=== PATIENT | male | born 1980 | race Caucasian/White ===

== ENCOUNTER 2022-04-07 13:08 | Emergency (ER) | payer OTHER, SELFPAY ==
[2022-04-07 13:09] VITALS: BP 118/71; PULSE 73; RESP 18; O2SAT 95; BMI 24.0
[2022-04-07 13:13] VITALS: BP 116/66
--- NOTE | 2022-04-07 13:20 | ECG_ITS ---
[facility] Test Date: 2022-04-07 Pat Name: Leonardo Martinez Department: Room: Gender: Male Electronics Inspector: : 1980 Requested By: Emil Hernandez Order Number: [id number] Gao MD: Satya You M.D. Measurements Intervals [place] Rate: 58 P: 30 CA: 185 QRS: -1 QRSD: 106 T: 69 QT: 371 QTc: 367 Interpretive Statements SINUS BRADYCARDIA POSSIBLE ANTERIOR MYOCARDIAL INFARCTION , OF INDETERMINATE AGE [30 ms Q WAVE IN V3/V4, OR R < 0.2 mV IN V4] No previous ECG available for comparison Electronically Signed On 04-08-2022 8:52:17 CDT by Satya You M.D. [email or web address]
--- NOTE | 2022-04-07 13:26 | XR_ITS ---
WS: [id number] Exam: XR chest 1V portable [id number] Date/Time of Exam: 04/07/2022 1:29 PM Reason For Exam: chest pain Findings: The lungs are clear and fully expanded. Costophrenic angles are sharp. No infiltrates. Bronchovascula r relief appears normal. Cardiac silhouette is unremarkable. Bony elements are intact. XR/XR chest 1V portable [id number] IMPRESSION: Unremarkable chest radiograph.
--- NOTE | 2022-04-07 13:34 | W.ED.GENADLT ---
HPI - General Adult General: Chief complaint: Chest Pain Stated complaint: Chest Pain Time Seen by Provider: 04/07/22 13:10 History of Present Illness: Patient is a 41-year-old male with family history of cardiac diseases presenting to the emergency room for evaluation of chest pain since yesterday afternoon. Patient first noticed chest pain yesterday at 10 AM. Since then, patient has been having intermittent pressure-like chest pain lasting throughout the day. Patient said the pain is not worse with exertion it is minimally pleuritic. Patient denies pain rating with radiation to the back or arm. Patient denies any nausea/vomiting, diaphoresis, cough, runny nose, sore throat, abdominal complaints, diarrhea, melena/hematochezia. Denies any recent surgery or immobilization. Patient denies any leg swellings or prior history of VTE. Patient has multiple first-degree family members with heart problems including brother with a stent in in his 40s. Onset: 10am yesterday Duration:ongoing Location:home Severity:moderate Associated symptoms: Reports chest pain; Deny dyspnea, nausea, rash, palpitations or vomiting Review of Systems Const: Denies: fever(s) or chills Eyes: Denies: change in vision ENMT: Denies: mouth pain Card: Reports: chest pain; Denies: palpitations Resp: Denies: dyspnea or non-productive cough GI: Denies: abdominal pain, nausea, vomiting or diarrhea : Denies: dysuria Musc: Denies: extremity pain Skin/Breast: Denies: rash or new lesions Neuro: Denies: weakness in extremities Psych: Reports: other (Normal mood) Artem/Lymph: Denies: easy bruising PFS ED PFSH: Medical History No pertinent past medical history Family History Brother CAD (coronary artery disease) Mother CAD (coronary artery disease) Grandmother No problems noted. Grandfather CAD (coronary artery disease) Social History Smoking and tobacco status: current every day smoker (chews, 1 can per day) smokeless tobacco Smokeless tobacco user: chewing tobacco Smokeless tobacco details: 1 can per day Second hand smoke exposure: No Alcohol intake: current Alcohol intake frequency: holidays/special occasions only Alcohol type: beer Lives independently: Yes Housing: Apartment Marital status: Single Current occupational status: employed Physical Exam Const: COMMON NORMALS: alert HENMT: COMMON NORMALS: atraumatic HEAD & SCALP: atraumatic MOUTH: moist mucous membranes not abnormal Eye: COMMON NORMALS: EOMs intact bilaterally and conjunctivae normal CONJUNCTIVA: Yes conjunctivae normal Neck/C-Spine: COMMON NORMALS: full ROM and supple Resp: COMMON NORMALS: normal respiratory effort and clear to auscultation bilaterally AUSCULTATION: clear to auscultation bilaterally Cardio: COMMON NORMALS: regular rate RATE: regular rate OTHER: 2+ radial pulses b/l GI: COMMON NORMALS: Soft to palpation and non-tender PALPATION: Yes Soft to palpation OTHER: No focal TTP. NO guarding rebound, guarding, rigidity. No CVA tenderness to percussion. Neg Nicole/Neg McBurney's point tenderness, no suprabupic tenderness to palpation. Extremity: COMMON NORMALS: full ROM OTHER: No shari sign Neuro: SENSORIUM/ORIENTATION: Yes alert MOTOR EXAM: No Abnormal motor strength present and Other motor observations present (no focal motor deficits) Psych: COMMON NORMALS: speech normal SPEECH: Yes normal speech MOOD & AFFECT: Yes euthymic mood Course Vital Signs: Vital signs: Vital Signs Pulse Rate 58 L 04/07/22 14:00 Respiratory Rate 15 04/07/22 13:43 Blood Pressure 111/74 04/07/22 14:00 Pulse Oximetry 95 04/07/22 14:00 Oxygen Delivery Me thod 04/07/22 13:09 Oxygen Flow Rate 2 04/07/22 13:09 [facility] - General Adult Medical Decision Making Patient is a 41-year-old male with family history of cardiac diseases presenting to the emergency room for evaluation of chest pain since yesterday afternoon. Patient first noticed chest pain yesterday at 10 AM. Patient is hemodynamically stable, 2+ radial pulses bilaterally, no signs of extremity edema. Patient has no significant cardiac murmurs. X-ray chest appears to be clear. Patient has a troponin x2 with delta less than 5 both of which were normal. The present time, patient's heart score is a 3 (story-1/family hx -1/age - 1). I performed shared decision-making with patient regarding admission versus discharge today, and patient prefers to be discharged. I was asked arrange patient for outpatient stress test and close cardiology follow-up. Patient verbalizes understanding to return for any worsening symptoms including chest pain, dyspnea, fatigue, arm pain/jaw pain/back pain or any new or concerning issues. Disposition: Discharge. Patient counseled regarding diagnostic impression, treatment plan. Patient given ED strict return precautions to return for continuation, worsening, or development of new symptoms. Instructed to f/u w/ PCP and Cardiology regarding symptoms today. Patient verbalized understanding. Lab Data : 04/07/22 14:38 04/07/22 14:38 Radiology Impressions Chest X-Ray 04/07/22 13:26 IMPRESSION: Unremarkable chest radiograph. Laboratory Results WBC 6.2 10^3/uL (4.0-10.0) 04/07/22 14:38 RBC 4.70 10^6/uL (4.1-5.3) 04/07/22 14:38 Hgb 14.0 g/dL (11.7-16.6) 04/07/22 14:38 Hct 41.6 % (42.0-52.0) L 04/07/22 14:38 MCV 88.5 fl (80-94) 04/07/22 14:38 MCH 29.8 pg (28.0-34.0) 04/07/22 14:38 MCHC 33.7 g/dL (30.0-36.0) 04/07/22 14:38 RDW 12.0 % (12.1-15.1) L 04/07/22 14:38 Plt Count 231 10^3/cmm (130-400) 04/07/22 14:38 MPV 9.3 fL (7.4-10.4) 04/07/22 14:38 Neut % (Auto) 62.8 % 04/07/22 14:38 Lymph % (Auto) 28.7 % 04/07/22 14:38 [place] % (Auto) 7.4 % 04/07/22 14:38 Eos % (Auto) 0.6 % 04/07/22 14:38 Baso % (Auto) 0.3 % 04/07/22 14:38 Neut # (Auto) 3.90 10^3/uL (1.8-7.7) 04/07/22 14:38 Lymph # (Auto) 1.8 10^3/uL (0.8-4.8) 04/07/22 14:38 [place] # (Auto) 0.5 10^3/uL (0.2-0.9) 04/07/22 14:38 Eos # (Auto) 0.0 10^3/uL (0.0-0.8) 04/07/22 14:38 Baso # (Auto) 0.0 10^3/uL (0.0-0.1) 04/07/22 14:38 Nucleated RBC % (auto) 0 % 04/07/22 14:38 Nucleated RBCs # 0.0 /100WBC 04/07/22 14:38 Sodium 140 mmol/L (136-145) 04/07/22 14:38 Potassium 4.5 mmol/L (3.5-5.1) 04/07/22 14:38 Chloride 102 mmol/L (98-107) 04/07/22 14:38 Carbon Dioxide 27 mmol/L (22-29) 04/07/22 14:38 Anion Gap 15.5 (5-19) 04/07/22 14:38 BUN 14 mg/dL (6-20) 04/07/22 14:38 Creatinine 1.1 mg/dL (0.7-1.2) 04/07/22 14:38 GFR Calculation 73.4 mL/min (90-130) L 04/07/22 14:38 Glucose 99 mg/dL (65-115) 04/07/22 14:38 Calculated Osmolality 291 mOsm/kg (285-295) 04/07/22 14:38 Calcium 9.7 mg/dL (8.5-10.5) 04/07/22 14:38 Troponin T Baseline 6 ng/L (0-15) 04/07/22 14:38 Troponin T 120 Minute 6.00 ng/L (0-15) 04/07/22 16:40 Delta Troponin T 0 ABS# (0-10) 04/07/22 16:40 Imaging Data Other Imaging: Radiologist's impression: [address] [place] [address] XRay Report Signed Patient: Leonardo Martinez Unit #: [id number] : 1980 Age/Sex: 41 / M ADM Date: 04/07/22 Loc: ER Room/Bed: Attending Dr: Ordering Provider/Ordering MD: Emil Hernandez MD Date of Service: 04/07/22 Procedure(s): XR chest 1V portable [id number] Accession Number(s): [id number] Report Number: [id number] WS: [id number] Exam: XR chest 1V portable [id number] Date/Time of Exam: 04/07/2022 1:29 PM Reason For Exam: chest pain Findings: The lungs are clear and fully expanded. Costophrenic angles are sharp. No infiltrates. Bronchovascular relief appears normal. Cardiac silhouette is unremarkable. Bony elements are intact. ? XR/XR chest 1V portable [id number] IMPRESSION: Unremarkable chest radiograph. ? ? Dictated By: Josue Sheffield DO Signed By: Josue Sheffield DO Signed Date/Time: 04/07/221337 DD/ 133 Discharge Plan Discharge Patient Disposition: Home Clinical Impression: Chest pain Condition: Stable Prescriptions: New acetaminophen 500 mg tablet 500 mg PO Q6H PRN (Reason: pain) 5 Days Qty: 20 0RF No Action nitroglycerin [Nitrostat] 0.4 mg tablet, sublingual 0.4 mg sublingual ONCE Qty: 1 0RF aspirin 81 mg tablet,chewable 81 mg PO ONCE Qty: 4 0RF Discharge Orders: Discharge ED (Routine); Ordered 04/07/22 Ordered By: Emil Hernandez Referrals: Shant Dyer, [employer] OUTF[employer]TER-C [Family Provider] - Discharge Diet: Advance as tolerated Discharge Activity: Increase activity as tolerated Patient Instructions: Chest Pain (ED) Activity Restrictions/Additional Instructions: Come back to the emergency room if your chest pain worsens, have any fever or chills, worsening shortness of breath, worsening exertional lightheadedness, or any new or concerning complaints. Our skilled nursing case manager will have you follow-up with Cardiology in the next few days and set up for a outpatient stress test. You would be expected to have a phone call with our skilled nursing case manager who will put you on the schedule. You can expect a call from us in the next 2-3 days. If you don't hear from us, call us back in the emergency room at [phone]. Coding Level of Care Code ED Maintenance Craftsman for Jerzy Fwd Exam Comprehensive
[2022-04-07 13:43] VITALS: BP 128/72; PULSE 66; RESP 15; O2SAT 94
[2022-04-07 14:00] VITALS: BP 111/74; PULSE 58; O2SAT 95
--- NOTE | 2022-04-07 14:10 | PC.PHAR ---
pt states he takes no rx or otc medications-pt states when he was at the drs office he was given a 81mg aspirin and nitro states he normally doesnt take
[2022-04-07 14:48] LABS: Basophils % 0.3 %; Eosinophils % 0.6 %; Hematocrit 41.6 % (42.0-52.0); Lymphocytes # 1.8 10^3/uL (0.8-4.8); Lymphocytes % 28.7 %; Mean Corpuscular HGB Conc 33.7 g/dL (30.0-36.0); Mean Corpuscular Hemoglobin 29.8 pg (28.0-34.0); Mean Corpuscular Volume 88.5 fl (80-94); Mean Platelet Volume 9.3 fL (7.4-10.4); Monocytes # 0.5 10^3/uL (0.2-0.9); Monocytes % 7.4 %; Neutrophils % 62.8 %; Nucleated Red Blood Cells % 0 %; Platelet Count 231 10^3/cmm (130-400); White Blood Count 6.2 10^3/uL (4.0-10.0)
[2022-04-07 15:09] LABS: Troponin(5th) Baseline 6 ng/L (0-15)
[2022-04-07 15:11] LABS: Blood Urea Nitrogen 14 mg/dL (6-20); Calcium 9.7 mg/dL (8.5-10.5); Carbon Dioxide 27 mmol/L (22-29); Chloride 102 mmol/L (98-107); Glomerular Filtration Rate 73.4 mL/min (90-130); Glucose 99 mg/dL (65-115); Osmolality Calculated 291 mOsm/kg (285-295); Sodium 140 mmol/L (136-145)
[2022-04-07 15:12] LABS: Anion Gap 15.5 (5-19); Potassium 4.5 mmol/L (3.5-5.1)
[2022-04-07 17:27] LABS: Troponin 5 2HR Delta 0 ABS# (0-10)
[2022-04-07 17:35] VITALS: BP 116/57; PULSE 60; RESP 15; O2SAT 96
--- NOTE | 2022-04-08 10:24 | DCPLANNER ---
Addendum entered by Soledad Hand 04/14/22 15:22: manager transmission called [facility], scheduled a follow up appointment for patient. manager transmission called patient to give him the appointment information, patient told case investigator that he has a primary care physician in the area that he lives. manager transmission called and cancelled appointment. Patient stated that he is going to call and cancel his stress test also. Addendum entered by Soledad Hand 04/13/22 05:40: Patient has an out patient stress test scheduled for Tuesday, April 21, 2022 at 12:15. Centralized scheduling will call patient with appointment information. Original Note: manager transmission had message to schedule an out patient stress test for patient. manager transmission called patient to confirm that he wanted the test and to confirm who patient sees for primary care. Patient stated that he wanted the test, and that he does not have a primary care physician. manager transmission faxed signed order to centralized scheduling, who will call patient with appointment information. manager transmission will have the results go to Dr. López at [facility], will schedule a follow up appointment after the stress test. manager transmission sent the primary care physician notification that the ER physician ordered a stress test for the patient.
== END 2022-04-07 17:36 | disposition home or self-care (01) ==
PROVIDERS: Emergency Provider Emergency Medicine
DX: R07.9 Chest pain, unspecified (principal); F17.210 Nicotine dependence, cigarettes, uncomplicated
CPT/HCPCS: 36415; 71045; 80048; 84484; 85025; 93005; 99285